=== PATIENT | male | born 2000 | race Two or more races ===

== ENCOUNTER 2021-09-08 15:11 | Emergency (ER) | payer OTHER ==
[~2021-09-08] VITALS: Ht 177.8 cm; Wt 104.2 kg
[2021-09-08 15:18] VITALS: BP 133/70
[2021-09-08] MEDS ORDERED: SULF1TAB49 PO (16:04)
== END 2021-09-08 16:29 | disposition home or self-care (01) ==
LOC: ER 15:12
DX: S91.114A Laceration without foreign body of right lesser toe(s) without damage to nail, initial encounter (principal); W29.3XXA Contact with powered garden and outdoor hand tools and machinery, initial encounter; Y93.89 Activity, other specified; Y92.89 Other specified places as the place of occurrence of the external cause; Y99.8 Other external cause status; Z79.899 Other long term (current) drug therapy
CPT/HCPCS: 99283